=== PATIENT | female | born 1970 | race American Indian/Alaskan Native ===

== ENCOUNTER 2020-10-20 14:04 | Outpatient (CLI) | payer OTHER ==
--- NOTE | 2020-10-21 11:46 | Mammography Report ---
DIGITAL SCREENING MAMMOGRAM WITH TOMOSYNTHESIS WITH CAD, 10/20/2020 CLINICAL INFORMATION / INDICATION: Routine Screening Mammography. TECHNIQUE: Digital bilateral 2D and 3D mammography with tomosynthesis was obtained in the craniocaud al and mediolateral oblique projections. Computer-Aided Detection (CAD) analysis was used for interp retation of this study. COMPARISON: 10/12/2019 and prior FINDINGS: Breast Density: There are scattered areas of fibroglandular density. No dominant mass, suspicious calcifications, or architectural distortion in the left breast. Bilateral benign-appearing nodularity is stable. In the right breast, mid depth, centrally at approxi mately 6:00, an elongated area of mild distortion with associated microcalcifications is new. IMPRESSION: Apparent developing area of architectural distortion with microcalcifications in the cent ral right breast. Follow up recommendation: Right breast spot magnification views and right breast ultrasound BI-RADS Category 0: Incomplete. Needs additional imaging evaluation and/or prior mammograms for meryl rison. A "normal" or negative report should not discourage follow up or biopsy of a clinically significant f inding. A written summary of these findings will be mailed to the patient. The patient will be entered into a mammography reporting system which will generate a reminder letter for the patient's next appointmen t at the appropriate interval. The [employer] recommends yearly mammograms starting at age 40 and continuing as l [place] as a woman is in good health. Breast MRI is recommended for women with an approximate 20-25% or greater lifetime risk of breast cancer, including women with a strong family history of breast or ova troy cancer or who have been treated for Hodgkin's disease. Signer Name: Saad Lindsey MD Signed: 10/21/2020 11:42 AM Workstation Name: [id number]
== END 2020-10-20 14:05 | disposition home or self-care (01) ==
LOC: SPVWC 14:04
PROVIDERS: ATTEND Surgery
DX: Z12.31 Encounter for screening mammogram for malignant neoplasm of breast (principal)
CPT/HCPCS: 77063; 77067

== ENCOUNTER 2020-11-11 08:36 | Outpatient (CLI) | payer OTHER ==
--- NOTE | 2020-11-11 09:39 | Mammography Report ---
DIGITAL DIAGNOSTIC MAMMOGRAM WITH CAD , 11/11/2020 CLINICAL INFORMATION / INDICATION: ABNORMAL R MAMMO TECHNIQUE: Digital right mammographic imaging was performed. Magnification views were obtained. This examination was interpreted with the benefit of Computer-aided Detection analysis. COMPARISON: Recent mammogram 10/20/2020, and prior mammogram 10/12/2019 FINDINGS: Breast Density: There are scattered areas of fibroglandular density. There is a 2.5 cm grouping of amorphous faint calcifications in the right breast at 6:00, middle dept h. Calcifications are in a ductal distribution. IMPRESSION: Grouped amorphous calcifications right breast, 6:00. Recommend further evaluation with st ereotactic biopsy. Follow up recommendation: Biopsy BI-RADS Category 4: Suspicious for Malignancy. A "normal" or negative report should not discourage follow up or biopsy of a clinically significant f inding. A written summary of these findings will be mailed to the patient. The patient will be entered into a mammography reporting system which will generate a reminder letter for the patient's next appointmen t at the appropriate interval. According to the [employer], yearly mammograms are recommended starting at age 40 and continuing as long as a woman is in good health. Breast MRI is recommended for women with an [place] roximately 20-25% or greater lifetime risk of breast cancer, including women with a strong family his tory of breast or ovarian cancer and women who have been treated for Hodgkin's disease. Signer Name: Olga Pascual MD Signed: 11/11/2020 9:34 AM Workstation Name: [id number]
== END 2020-11-11 08:37 | disposition home or self-care (01) ==
LOC: SPVWC 08:36
PROVIDERS: ATTEND Surgery
DX: R92.1 Mammographic calcification found on diagnostic imaging of breast (principal); R92.8 Other abnormal and inconclusive findings on diagnostic imaging of breast

== ENCOUNTER 2020-11-26 10:34 | Outpatient (CLI) | payer OTHER ==
--- NOTE | 2020-11-26 15:51 | Mammography Report ---
STEREOTACTIC GUIDED RIGHT BREAST BIOPSY, 11/26/2020 CLINICAL INFORMATION / INDICATION: Abnormal calcifications in the right breast at 6:00.. COMPARISON: Recent mammogram 11/11/2020 and 10/20/2020 PROCEDURE: Risks, benefits, and indications to the procedure were discussed with the patient in detail, includin g bleeding, infection, hematoma formation, and inadequate tissue sampling. The patient agreed to proc eed with both verbal and written consent. A timeout procedure was performed with 2 patient identifier s. The patient was placed in the prone position on the biopsy table. Targeted stereotactic images were o btained of the area of interest. Despite multiple attempts to identify the calcifications in question , calcifications could not be confidently identified. Therefore, the procedure was terminated. The ca lcifications are very faint on magnification views, which limited/hindered visualization on stereotac tic views. Reason for canceling the procedure was discussed with the patient. IMPRESSION: 1. Right breast stereotactic biopsy was canceled as the targeted calcifications could not be confiden tly identified on stereotactic imaging. Options for management of the calcifications include needle l ocalization and surgical excision, or serial 6 month follow-up mammograms. MRI could also be obtained but may prove somewhat difficult due to the large breast size. Signer Name: Olga Pascual MD Signed: 11/26/2020 3:47 PM Workstation Name: [id number]
== END 2020-11-26 10:35 | disposition home or self-care (01) ==
LOC: SPVWC 10:34
PROVIDERS: ATTEND Surgery
DX: R92.1 Mammographic calcification found on diagnostic imaging of breast (principal); Z53.8 Procedure and treatment not carried out for other reasons

== ENCOUNTER 2021-04-30 08:49 | Outpatient (CLI) | payer OTHER ==
--- NOTE | 2021-04-30 11:12 | Mammography Report ---
DIGITAL DIAGNOSTIC MAMMOGRAM WITH CAD , 04/30/2021 CLINICAL INFORMATION / INDICATION: This is a 6 month follow-up evaluation of right breast calcificati ons. The patient had attempted stereotactic biopsy performed 6 months ago but this was unsuccessful d ue to inability to visualize the calcifications well at the time of biopsy. Therefore, she presents f or 6 month follow-up evaluation. TECHNIQUE: Digital right mammographic imaging was performed. Magnification views were obtained. This examination was interpreted with the benefit of Computer-aided Detection analysis. COMPARISON: Right mammogram, 11/11/2020. Screening mammogram, 10/20/2020, 10/12/2019 and 10/02/2018 FINDINGS: Breast Density: There are scattered areas of fibroglandular density. The faint grouped calcifications at the 6:00 position middle depth are again noted and have not signi ficantly changed when allowing for differences in technique. No new or suspicious mammographic findin g is identified. IMPRESSION: Stable appearance of right breast calcifications at the 6:00 position which continue to d emonstrate a probably benign morphology and have not significantly changed when allowing for differen tammi in technique. At least one additional 6 month follow-up right diagnostic mammogram is recommended to ensure stability. Follow up recommendation: Short term follow up in 6 months. BI-RADS Category 3: Probably Benign. Followup in 6 months. A "normal" or negative report should not discourage follow up or biopsy of a clinically significant f inding. A written summary of these findings will be mailed to the patient. The patient will be entered into a mammography reporting system which will generate a reminder letter for the patient's next appointmen t at the appropriate interval. According to the [employer], yearly mammograms are recommended starting at age 40 and continuing as long as a woman is in good health. Breast MRI is recommended for women with an [place] roximately 20-25% or greater lifetime risk of breast cancer, including women with a strong family his tory of breast or ovarian cancer and women who have been treated for Hodgkin's disease. Signer Name: Elham Irwin MD Signed: 04/30/2021 11:08 AM Workstation Name: [id number]
== END 2021-04-30 08:50 | disposition home or self-care (01) ==
LOC: SPVWC 08:49
PROVIDERS: ATTEND Surgery
DX: R92.1 Mammographic calcification found on diagnostic imaging of breast (principal)